=== PATIENT | female | born 1950 | race Caucasian/White ===

== ENCOUNTER → 2023-06-03 06:45 | Outpatient (REF) | payer MEDICARE, SELFPAY | LOC: WDC 06:45 | PROVIDERS: ATTENDING PHYSICIAN Physician Assistant Medical | DX: Z12.31 Encounter for screening mammogram for malignant neoplasm of breast (principal) | CPT/HCPCS: 77063; 77067 ==

== ENCOUNTER → 2023-10-03 07:15 | Outpatient (REF) | payer MEDICARE, SELFPAY | LOC: HWRAD 07:15 | PROVIDERS: ATTENDING PHYSICIAN Internal Medicine Endocrinology, Diabetes & Metabolism; FAMILY PHYSICIAN Physician Assistant Medical | DX: M81.0 Age-related osteoporosis without current pathological fracture (principal) | CPT/HCPCS: 77080 ==

== ENCOUNTER → 2024-05-02 10:58 | Outpatient (REF) | payer MEDICARE, SELFPAY | LOC: HWRAD 10:58 | PROVIDERS: ATTENDING PHYSICIAN Physician Assistant; FAMILY PHYSICIAN Physician Assistant Medical | DX: M54.16 Radiculopathy, lumbar region (principal) | CPT/HCPCS: 72131 ==

== ENCOUNTER → 2024-05-16 11:01 | Outpatient (REF) | payer MEDICARE, SELFPAY | LOC: HWRAD 11:01 | PROVIDERS: ATTENDING PHYSICIAN Physician Assistant; FAMILY PHYSICIAN Physician Assistant Medical | DX: M54.12 Radiculopathy, cervical region (principal) | CPT/HCPCS: 72125 ==

== ENCOUNTER → 2024-05-23 11:06 | Outpatient (REF) | payer MEDICARE, SELFPAY | LOC: HWRAD 11:06 | PROVIDERS: ATTENDING PHYSICIAN Physician Assistant; FAMILY PHYSICIAN Physician Assistant Medical | DX: M54.14 Radiculopathy, thoracic region (principal) | CPT/HCPCS: 72128 ==

== ENCOUNTER → 2024-06-07 06:40 | Outpatient (REF) | payer MEDICARE, SELFPAY | LOC: WDC 06:40 | PROVIDERS: ATTENDING PHYSICIAN Physician Assistant Medical | DX: Z12.31 Encounter for screening mammogram for malignant neoplasm of breast (principal); Z12.39 Encounter for other screening for malignant neoplasm of breast | CPT/HCPCS: 77063; 77067 ==

== ENCOUNTER → 2024-06-20 14:30 | Outpatient (REF) | payer MEDICARE, SELFPAY | LOC: HWRAD 14:30 | PROVIDERS: ATTENDING PHYSICIAN Internal Medicine Critical Care Medicine; FAMILY PHYSICIAN Physician Assistant Medical | DX: R91.8 Other nonspecific abnormal finding of lung field (principal) | CPT/HCPCS: 71250 ==

== ENCOUNTER 2025-01-09 06:12 | Emergency (ER) | payer MEDICARE, SELFPAY ==
[2025-01-09 06:26] VITALS: BP 157/89
[2025-01-09] MEDS: NSS 1000 IV (07:40)
[2025-01-09 07:41] VITALS: BP 159/86
[2025-01-09] MEDS: ZOFRAN 4 MG IV ×2 (07:41→12:32)
[2025-01-09] MEDS: PEPCID 20 MG IV (07:41)
[2025-01-09 07:55] LABS: Urine Character Clear (Clear)
[2025-01-09 07:59] LABS: Hematocrit 37.7 % (37.0-47.0); Hemoglobin 12.8 g/dL (12.0-16.0); Mean Corp Hgb Conc. 34.0 g/dL (33.0-37.0); Mean Corpuscular Volume 79.0 fL (81.0-99.0); Nucleated Red Blood Cells % 0 %; Platelet Count 250 10^3/uL (130-400); Red Cell Dist. Width 13.0 % (11.5-14.5)
[2025-01-09 08:00] VITALS: BP 160/73
[2025-01-09 08:16] LABS: ALT (SGPT) 20 U/L (0-35); AST (SGOT) 30 U/L (14-36); Albumin 5.0 g/dl (3.5-5.0); Alkaline Phosphatase 64 U/L (38-126); Blood Urea Nitrogen 17 mg/dl (7-17); Calcium 9.0 mg/dl (8.4-10.2); Carbon Dioxide 22 mmol/L (22-30); Chloride 97 mmol/L (98-107); Glucose 98 mg/dl (70-99); Lipase 36 U/L (23-300); Potassium 3.9 mmol/L (3.5-5.1); Sodium 130 mmol/L (135-145); Total Protein 7.3 g/dl (6.3-8.2); eGFR > 60.00
[2025-01-09 09:00] VITALS: BP 141/68
[2025-01-09] MEDS: BENADRYL 25 MG IV (09:10)
[2025-01-09] MEDS: REGLAN 10 MG IV (09:10)
--- NOTE | 2025-01-09 09:27 | ED.GENMED ---
History of Present Illness
General
Chief Complaint: Abdominal Symptoms
Source: patient
Exam Limitations: none
Time Seen by Provider: 01/09/25 07:09
Nursing documentation reviewed up to this point in time: agreed with
History of Present Illness
History of Present Illness:
74-year-old female presenting to the emergency department today with concerns of vomiting and diarrhea. This started after starting the colonoscopy prep she has had a problem with this in the past. Took 2 Zofran at home without relief. Denies
abdominal pain.
Past History
Past History
ED Past Medical History: GERD, HTN, Other (RSD) and Other
ED Past Surgical History: Gynecological (hysterectomy), Orthopedic and Other (spinal cord stimulator)
Social History
Tobacco: Non-smoker
Alcohol: None
Drug: None
Review of Systems
Review of Systems
Allergies reviewed?: Yes
All Other Systems: ROS reviewed and negative except as documented in HPI and ROS
Phy Exam
Physical Exam
Physical Exam:
GENERAL: Alert , in no apparent distress
EYE: pupils equal and reactive
NECK: Supple, no significant adenopathy.
ENT: o/p clr, mmm.
CARDIAC: Regular rate and rhythm .
LUNGS: Clear breath sounds bilaterally, no acute respiratory distress, no wheezes/rales/rhonchi
ABDOMEN: Soft, without focal tenderness, no r/g, no cvat
NEUROLOGICAL: Alert and oriented, no focal neuro deficits
SKIN: Warm and dry, skin intact.
MUSCULOSKELETAL: No edema, well perfused.
PSYCH: Normal and appropriate interaction.
Course
Orders/Labs/Results
Orders:
Orders
01/09/25 07:20
Electrocardiogram (*1) Stat
Reason for Study: Abdominal Pain
EKG- Treatment ONCE
0.9% Sodium Chloride 1000 ml [Nss] 1,000 ml IV BOLUS
Famotidine [Pepcid] 20 mg IV NOW STA
Ondansetron Injectable [Zofran] 4 mg IV NOW STA
01/09/25 07:39
Complete Blood Count/With Diff Urgent
Comprehensive Metabolic Panel Urgent
Lipase Urgent
Urinalysis Reflex To Culture Urgent
Date Specimen was Collected: 01/09/25
Time Specimen was Collected: 07:38
Urine Microscopic Reflex Cult Urgent
Urine Culture Urgent
MELANIE Source: U
Specimen Description:
Obtained by: Random
Date Specimen was Collected: 01/09/25
Time Specimen was Collected: 07:38
01/09/25 09:01
Diphenhydramine [Benadryl] 25 mg IV NOW STA
Metoclopramide [Reglan] 10 mg IV NOW STA
01/09/25 12:22
CT Abd/Pel (IV only)-DH only Urgent
Comment:
Reason For Exam: abd pain vomiting
Ondansetron Injectable [Zofran] 4 mg IV NOW STA
Abnormal Lab Results
01/09/25
07:39
MCV 79.0 L fL
(81.0-99.0)
MCH 26.8 L pg
(27.0-31.0)
Absolute Lymphs (auto) 0.7 L 10^3/uL
(1.2-3.4)
Neutrophils % 84.7 H %
(42.2-75.2)
Lymphocytes % 12.0 L %
(20.5-51.1)
Sodium 130 L mmol/L
(135-145)
Chloride 97 L mmol/L
(98-107)
Urine Ketones 3+ A
(Negative)
Ur Occult Blood Reflex 3+ A
(Negative)
Leukocyte Esterase Rfl 1+ A
(Negative)
Urine RBC 7-10 A /HPF
(0-2)
Urine WBC (Reflex) 11-15 A /HPF
(0-5)
Urine Bacteria (Reflex) Many A
(Negative)
Urine Albumin (Reflex) 2+ A
(Neg - Trace)
01/09/25 07:39
01/09/25 07:39
Vital Signs
Initial and Last Documented VS:
Initial Vital Signs
Temp Pulse Resp BP Pulse Ox
97.9 F 74 18 157/89 99
01/09/25 06:26 01/09/25 06:26 01/09/25 06:26 01/09/25 06:26 01/09/25 06:26
Last Documented Vital Signs
Temp Pulse Resp BP Pulse Ox
97.9 F 63 16 141/68 97
01/09/25 06:26 01/09/25 11:07 01/09/25 11:07 01/09/25 09:00 01/09/25 10:53
MDM/Problems Addressed
MDM/Problems Addressed:
74-year-old female presenting to the emergency department today with concerns of vomiting and diarrhea all night after taking colonoscopy prep. On arrival patient's vital signs are normal patient in no obvious distress no abdominal pain. Slightly
low sodium level otherwise labs are normal. Patient still with some ongoing symptoms was complaining some abdominal pain CT scan was obtained that showed enteritis but did not show any emergent pathology. Additionally CT scan showed some urinary
bladder wall thickening nonspecific. Patient did not have significant symptoms consistent with UTI. Plan to wait for culture results for potential treatment rather than starting antibiotics at this time considering symptoms are likely consistent
with enteritis, the antibiotics may make symptoms worse at this point.
*Pulse Oximetry
SaO2: 98
Oxygen Mode of Delivery: Room air
Patient hypoxic: no (97)
*Critical Care Note
Total Time (30-74mins, 75-104mins- exclusive of procedures): Not Applicable
ED Attending Note
-
Portions of this chart may have been created with voice recognition software.� Occasional wrong word or��sound alike� substitutions may have occurred due to the inherent limitations of voice recognition software.
Discharge Plan
Departure
Patient Disposition: Home (Routine Discharge)
Date of Disposition: 01/09/25
Time of Disposition: 14:10
Patient with high blood pressure during this ER visit?: No
Condition: Good
Covid-19: Not Applicable
Discharge Problem:
Enteritis
Instructions: Nausea and Vomiting, Adult (DC)
Prescriptions:
New
ondansetron 4 mg tablet,disintegrating
4 mg PO Q6H PRN (Reason: nausea and vomiting) Qty: 7 0RF
No Action
tizanidine 4 MG tablet
4 mg PO Q8HPRN PRN (Reason: pain)
ranitidine HCl [Zantac] 300 MG tablet
300 mg PO DAILY
hydrocodone-acetaminophen 1 EACH tablet
1 ea PO Q6HPRN PRN (Reason: pain)
aspirin 81 MG tablet,delayed release (DR/EC)
81 mg PO DAILY
amitriptyline 50 MG tablet
50 mg PO DAILY
lisinopril-hydrochlorothiazide 1 EACH tablet
1 ea PO DAILY
zolpidem 10 MG tablet
10 mg PO HS
clobetasol-emollient 15 GM cream
15 gm TP BIDPRN PRN (Reason: skin)
ondansetron 4 MG tablet,disintegrating
4 mg PO TIDPRN PRN (Reason: nausea) Qty: 15 0RF
amoxicillin-pot clavulanate 1 TABLET tablet
1 tab PO Q12 Qty: 20 0RF
montelukast 10 MG tablet
10 mg PO DAILY
Referrals:
Rachel Espitia PA-C [Family Provider, Internal Medicine]
Activity Restrictions/Additional Instructions:
You came to the emergency department today with concerns of nausea vomiting and diarrhea. Here you were found to have enteritis. Please take prescribed Zofran and drink fluids as able and slowly progress your diet over the next few days. Return
for any worsening, new or concerning symptoms.
Interventions
Interventions:
*Risk Screen - Suicide Last Done: 01/09/25 06:26
*General Assessment Last Done: 01/09/25 07:50
*Neglect/Abuse Screening Last Done: 01/09/25 07:50
*ED- Fall Risk Assessment Last Done: 01/09/25 07:50
*ED COVID-19 Vaccine History Last Done: 01/09/25 07:50
OY-Wqisxx-Xyqejprbam Assessment Last Done: 01/09/25 07:42
Discharge Date and Time
Print Language: INDIAN
== END 2025-01-09 14:24 | disposition home or self-care (01) ==
LOC: EMR 06:12
PROVIDERS: Physician Assistant; EMERGENCY PHYSICIAN Emergency Medicine; FAMILY PHYSICIAN Physician Assistant Medical
DX: K52.9 Noninfective gastroenteritis and colitis, unspecified (principal); N32.89 Other specified disorders of bladder; I10 Essential (primary) hypertension; K21.9 Gastro-esophageal reflux disease without esophagitis; G90.50 Complex regional pain syndrome I, unspecified
CPT/HCPCS: 99284; 96374; 96375 ×3; 96376; 96361; 74177; 80053; 81003; 81015; 83690; 85025; 87086; 93005; Q9967